=== PATIENT | female | born 1980 | race Caucasian/White ===

== ENCOUNTER → 2019-01-20 | Outpatient (CLI) | payer OTHER | LOC: M LRY 11:30 | PROVIDERS: ATTEND Nurse Practitioner Family | DX: Z53.9 Procedure and treatment not carried out, unspecified reason (principal); R06.02 Shortness of breath ==

== ENCOUNTER → 2019-01-20 | Outpatient (CLI) | payer OTHER | LOC: M LRY 11:32 | PROVIDERS: ATTEND Nurse Practitioner Family | DX: R06.02 Shortness of breath (principal); Z53.9 Procedure and treatment not carried out, unspecified reason ==

== ENCOUNTER → 2019-01-24 | Outpatient (CLI) | payer OTHER ==
--- NOTE | 2019-01-24 12:33 | REP ---
CHEST PA AND LATERAL: 01/24/2019. Clinical history: Cough. States she was recently diagnosed with pneumonia. Comparison: No prior examination. Findings: Two-view show the lung antoine well inflated. There are a few cuffed bronchi in the perihilar regions and streaky densities suggesting bronchitis or reactive airway disease. No dense consolidation, pleural effusion, lateral pleural thickening apical scar, pneumothorax. Heart, mediastinal and hilar contours normal. Bones intact. Impression: 1. Perihilar changes of bronchitis or reactive airway disease. No dense consolidation, pleural effusion. No other finding. Electronically Signed by Be Tucker MD 01/24/2019 07:04 P
== END ==
LOC: M LRY 11:10
PROVIDERS: ATTEND Nurse Practitioner
DX: R05 Cough (principal)
CPT/HCPCS: 71046; G0463; J2930; J7644

== ENCOUNTER → 2019-02-10 | Outpatient (CLI) | payer OTHER ==
--- NOTE | 2019-02-16 14:58 | REPMRS ---
Patient History The patient states she has not had a clinical breast exam in over a year. Family history of melanoma in mother. The [facility] lifetime risk for breast cancer is 14.4%. Digital Mammo Screening Bilat: February 10, 2019 - Exam #: [id number] Bilateral CC and MLO view(s) were taken. Technologist: Gayle Dial, Technologist Prior study comparison: 2017, digital mammo screening bilat, performed [facility]. FINDINGS: There are scattered fibroglandular densities. There has been no change in the appearance of the mammogram from the prior studies. There is a mild amount of residual fibroglandular tissue which is fairly symmetric. There is no interval development of dominant mass, architectural distortion, or clustered microcalcification suggestive of malignancy. Assessment: BI-RADS/ACR category 1 mammogram. Negative Mammogram. Recommendation Routine screening mammogram in 1 year (for women over age 40). This mammogram was interpreted with the aid of an FDA-approved computer-aided dectection system. Electronically Signed By: Reinier Borrego MD 02/16/19 [id number]
== END ==
LOC: M RAD 10:30
PROVIDERS: ATTEND Nurse Practitioner Primary Care
DX: Z12.31 Encounter for screening mammogram for malignant neoplasm of breast (principal); Z80.9 Family history of malignant neoplasm, unspecified

== ENCOUNTER → 2019-02-23 | Outpatient (REF) | payer OTHER ==
[2019-02-23 17:41] LABS: FOLLICLE STIMULATING HORMONE 5.6 mIU/mL; LUTEINIZING HORMONE 11.4 mIU/mL; PROGESTERONE 0.57 NG/ML
[2019-02-26 00:09] LABS: TESTOSTERONE FREE (DIRECT) 3.7 pg/mL (0.0-4.2)
== END ==
LOC: M LABDRAW1 12:35
PROVIDERS: ATTEND Internal Medicine Endocrinology, Diabetes & Metabolism
DX: E27.0 Other adrenocortical overactivity (principal)

== ENCOUNTER 2019-04-06 06:51 | Outpatient (CLI) | payer OTHER ==
[~2019-04-06] VITALS: Ht 165.1 cm; Wt 100.0 kg
[2019-04-06 07:30] VITALS: BP 137/91
[2019-04-06] MEDS ORDERED: COSYNTROPIN 0.25 MG/ML VIAL (J0834 PER 0.25MG) IV ONE (08:00)
[2019-04-06 09:24] VITALS: BP 170/97
[2019-04-06 09:55] LABS: PROGESTERONE 0.42 NG/ML
[2019-04-06 10:12] LABS: CORTISOL 60 MINUTES 21.1 UG/DL
[2019-04-10 00:07] LABS: ANDROSTENEDIONE 241 ng/dL (41-262); DEHYDROEPIANDROSTERONE UNCONJ 135 ng/dL (31-701)
== END 2019-04-06 09:25 | disposition home or self-care (01) ==
LOC: M INFU 06:51
PROVIDERS: ATTEND Internal Medicine Endocrinology, Diabetes & Metabolism
DX: E27.0 Other adrenocortical overactivity (principal); Z88.1 Allergy status to other antibiotic agents; Z88.8 Allergy status to other drugs, medicaments and biological substances
CPT/HCPCS: 36415; 82157; 82533; 82626; 82633; 83498; 84144; 84403; 96374; J0834

== ENCOUNTER → 2019-05-16 | Outpatient (REF) | payer OTHER | LOC: M SFHCLERA 09:32 | PROVIDERS: ATTEND Nurse Practitioner Family | DX: R68.89 Other general symptoms and signs (principal) ==

== ENCOUNTER → 2019-06-02 | Outpatient (REF) | payer OTHER ==
[2019-06-02 17:41] LABS: C REACTIVE PROTEIN QUANTITATIV 0.95 MG/DL (0.00-0.30); COMPLEMENT C3 134 MG/DL (90-180); COMPLEMENT C4 28 MG/DL (10-40); RHEUMATOID FACTOR QUANT < 10.0 IU/ML (<15.0); URIC ACID 7.7 MG/DL (2.6-6.0)
[2019-06-07 14:07] LABS: ANTI DS-DNA AB Negative (Negative); CYCLIC CITRULLINATED PEPTIDE 10 units (0-19); RNP ANTIBODY < 0.2 AI (0.0-0.9); SMITHS ANTIBODY < 0.2 AI (0.0-0.9); SSA SJOGRENS A <0.2 AI (0.0-0.9); SSB SJOGRENS B <0.2 AI (0.0-0.9)
== END ==
LOC: M SFHCRHEU 11:44
PROVIDERS: ATTEND Internal Medicine
DX: M06.4 Inflammatory polyarthropathy (principal); R76.8 Other specified abnormal immunological findings in serum; E79.0 Hyperuricemia without signs of inflammatory arthritis and tophaceous disease
CPT/HCPCS: 36415; 84550; 85652; 86140; 86160; 86200; 86225; 86235; 86255; 86431; G0463

== ENCOUNTER → 2020-02-15 | Outpatient (CLI) | payer OTHER ==
--- NOTE | 2020-02-15 09:34 | REPMRS ---
Patient History The patient states she has not had a clinical breast exam in over a year. Family history of unknown cancer in mother. No Hormone Replacement Therapy 3D TOMOSYNTHESIS WAS PERFORMED. [facility] lifetime risk for breast cancer is 14.3%. Volthierno density a. Digital Woman Screen Mammo: February 15, 2020 - Exam #: [id number] Bilateral CC and MLO view(s) were taken. Technologist: Karen Feliciano, Technologist Prior study comparison: February 10, 2019, bilateral digital mammo screening bilat, performed at [facility]. 2017, digital mammo screening bilat, performed at [facility]. FINDINGS: There are scattered fibroglandular densities. There has been no change in the appearance of the mammogram from the prior studies. There is a mild amount of residual fibroglandular tissue which is fairly symmetric. There is no interval development of dominant mass, architectural distortion, or clustered microcalcification suggestive of malignancy. Assessment: BI-RADS/ACR category 1 mammogram. Negative Mammogram. Recommendation Routine screening mammogram in 1 year (for women over age 40). This mammogram was interpreted with the aid of an FDA-approved computer-aided dectection system. Electronically Signed By: Reinier Borrego MD 02/15/20 [id number]
== END ==
LOC: M WHC 06:29
PROVIDERS: ATTEND Nurse Practitioner Primary Care
DX: Z12.31 Encounter for screening mammogram for malignant neoplasm of breast (principal)